=== PATIENT | male | born 1965 | race Caucasian/White ===

== ENCOUNTER 2020-05-21 22:11 | Emergency (ER) | payer BC, OTHER ==
[~2020-05-21] VITALS: Ht 185.4 cm; Wt 145.2 kg
[2020-05-21] MEDS ORDERED: JARD1TAB PO (22:23)
[2020-05-21] MEDS ORDERED: AUGM875T28 PO (22:23)
[2020-05-21] MEDS ORDERED: CHLO125TA PO (22:23)
[2020-05-21] MEDS ORDERED: VYVA70CA3 PO (22:23)
[2020-05-21] MEDS ORDERED: METF500T13 PO (22:23)
[2020-05-21] MEDS ORDERED: ACET-841 PO (22:23)
[2020-05-21] MEDS ORDERED: TRUL10IN SC (22:23)
[2020-05-21 23:06] LABS: HEMATOCRIT 49.3 % (42.0-52.0); HEMOGLOBIN 17.4 g/dl (13.5-17.5); MEAN CORPUSCULAR HEMOGLOBIN 31.1 pg (27.0-33.0); MEAN CORPUSCULAR HGB CONC 35.3 g/dl (32.0-36.5); MEAN CORPUSCULAR VOLUME 88.2 fl (80.0-96.0); PLATELET COUNT, AUTOMATED 270 10^3/uL (150-450); RED BLOOD COUNT 5.59 10^6/uL (4.30-6.10); WHITE BLOOD COUNT 9.6 10^3/uL (4.0-10.0)
[2020-05-21 23:24] LABS: ERYTHROCYTE SEDIMENTATION RATE 9 mm/hr (0-20)
[2020-05-21 23:43] LABS: BLOOD UREA NITROGEN 17 MG/DL (7-18); C REACTIVE PROTEIN QUANTITATIV 0.53 MG/DL (0.00-0.30); CALCIUM LEVEL 8.6 MG/DL (8.5-10.1); CARBON DIOXIDE LEVEL 29 MEQ/L (21-32); CHLORIDE LEVEL 101 MEQ/L (98-107); CREATININE FOR GFR 0.88 MG/DL (0.70-1.30); GLOMERULAR FILTRATION RATE > 60.0 (>56); GLUCOSE, FASTING 194 MG/DL (70-100); POTASSIUM SERUM 3.2 MEQ/L (3.5-5.1); SODIUM LEVEL 136 MEQ/L (136-145)
[2020-05-21] MEDS ORDERED: VANCOMYCIN HCL 2,000 MG in IV FLUID PLACE HOLDER 1 EA IV ONE (23:45)
[2020-05-21] MEDS ORDERED: VANCOMYCIN HCL 1,000 MG, VIAL MATE ADAPTER 1 EACH in NS 250 ML IV ONE (23:50)
--- NOTE | 2020-05-22 00:29 | REPVR ---
PROCEDURE INFORMATION: Exam: XR Left Hand Exam date and time: 05/21/2020 11:54 PM Age: 55 years old Clinical indication: Other: Prior cut. 17 days. ; Additional info: Swelling/cut thumb 17 days ago TECHNIQUE: Imaging protocol: XR Left hand. Views: 3 or more views. COMPARISON: No relevant prior studies available. FINDINGS: Bones/joints: No acute fracture. Joint space narrowing and marginal osteophytes at 1st carpometacarpal joint. Mild periarticular calcification at the 1st carpometacarpal joint. Small cyst the scaphoid bone. There is 4 mm negative ulnar variance. Soft tissues: Small foreign body in the base of the thumb in the 1st web measuring 3 mm in length. IMPRESSION: 1. No acute fracture. 2. Osteoarthritic changes of the 1st carpometacarpal joint. 3. Negative ulnar variance. 4. Small foreign body in the base of the thumb in the 1st web measuring 3 mm in length. Electronically signed by: Johanna Benoit On 05/22/2020 00:29:44 AM
[2020-05-22] MEDS ORDERED: KETOROLAC 30 MG/ML 1ML VIAL IV ONE (00:30)
[2020-05-22] MEDS ORDERED: VANCOMYCIN HCL 1,000 MG, VIAL MATE ADAPTER 1 EACH in NS 250 ML IV ONE (00:50)
[2020-05-22] MEDS ORDERED: DOXY100C37 PO (01:46)
[2020-05-22] MEDS ORDERED: KETO10TAB PO (01:46)
[2020-05-22 02:10] VITALS: BP 163/76
--- NOTE | 2020-05-23 08:08 | ED PDOC ---
Post-Departure Follow-Up ceretified letter ent to pt re formal read of left hand film. + foriegn body. pl ease refer to [facility] for revaluation and possible removal Maggy Jensen MD May 23, 2020 08:08
== END 2020-05-22 02:12 | disposition home or self-care (01) ==
LOC: M ED 22:11
DX: L03.114 Cellulitis of left upper limb (principal); S61.022A Laceration with foreign body of left thumb without damage to nail, initial encounter; W26.0XXA Contact with knife, initial encounter; Y92.9 Unspecified place or not applicable; Y93.9 Activity, unspecified; Y99.9 Unspecified external cause status; M18.9 Osteoarthritis of first carpometacarpal joint, unspecified; E11.9 Type 2 diabetes mellitus without complications; I10 Essential (primary) hypertension; Z88.2 Allergy status to sulfonamides; Z79.899 Other long term (current) drug therapy
CPT/HCPCS: 73130; 80048; 85027; 85652; 86140; 96365; 96375; 99284; J1885; J3370

== ENCOUNTER → 2020-07-30 | Outpatient (CLI) | payer BC ==
[~2020-07-30] MED LIST: ACET-841 PO; AUGM875T28 PO; CHLO125TA PO; DOXY100C37 PO; GLUC1TAB58 PO; JARD1TAB PO; KETO10TAB PO; LOVA1CAP17 PO; METF500T13 PO; TRUL10IN SC; VITA-243 PO; VITA50005 PO; VITMTA PO; VYVA70CA3 PO
== END ==
LOC: M LABSMTC 13:01
PROVIDERS: ATTEND Anesthesiology
DX: Z01.812 Encounter for preprocedural laboratory examination (principal)

== ENCOUNTER 2020-08-04 06:53 | Day surgery (SDC) | payer BC ==
[~2020-08-04] VITALS: Ht 185.4 cm; Wt 140.6 kg
[~2020-08-04 06:53] MED LIST changes: +NS 1,000 ML IV ONE
[2020-08-04] MEDS ORDERED: propofoL 500 MG/50 ML VIAL As Ordered ONE ×2 (07:32→07:38)
[2020-08-04] MEDS ORDERED: LIDOCAINE 2% 100MG/5ML SDV (FOR ANES.) As Ordered ONE (07:32)
--- NOTE | 2020-08-04 08:09 | ROOR ---
Patient Name: David Vieyra Procedure Date: 08/04/2020 7:34 AM Date of : 1965 Age: 55 Room: [facility] Gender: Male Note Status: Finalized Procedure: Total Colonoscopy to Cecum + Cold Snare Polypectomy + Hemoclips Indications: Screening for colorectal malignant neoplasm Providers: Woody Woods MD Referring MD: Pierre Hilliard MD Requesting Provider: Medicines: Monitored Anesthesia Care Complications: No immediate complications. Procedure: Pre-Anesthesia Assessment: - The heart rate, respiratory rate, oxygen saturations, blood pressure, adequacy of pulmonary ventilation, and response to care were monitored throughout the procedure. The Colonoscope was introduced through the anus and advanced to the cecum, identified by appendiceal orifice and ileocecal valve. The colonoscopy was performed without difficulty. The patient tolerated the procedure well. The quality of the bowel preparation was fair. Findings: The perianal and digital rectal examinations were normal. Non-bleeding internal hemorrhoids were found during retroflexion. The hemorrhoids were small and Grade I (internal hemorrhoids that do not prolapse). A small polyp was found in the ascending colon. The polyp was sessile. The polyp was removed with a jumbo cold forceps. Resection and retrieval were complete. To prevent bleeding after the polypectomy, one hemostatic clip was successfully placed. There was no bleeding at the end of the procedure. A small polyp was found in the transverse colon. The polyp was sessile. The polyp was removed with a cold snare. Resection and retrieval were complete. To prevent bleeding after the polypectomy, one hemostatic clip was successfully placed (MR conditional). There was no bleeding at the end of the procedure. The exam was otherwise without abnormality on direct and retroflexion views. Impression: - Preparation of the colon was fair. - Non-bleeding internal hemorrhoids. - One small polyp in the ascending colon, removed with a jumbo cold forceps. Resected and retrieved. Clip was placed. - One small polyp in the transverse colon, removed with a cold snare. Resected and retrieved. Clip (MR conditional) was placed. - The examination was otherwise normal on direct and retroflexion views. - The exam was otherwise normal to the cecum. Recommendation: - Patient has a contact number available for emergencies. The signs and symptoms of potential delayed complications were discussed with the patient. Return to normal activities tomorrow. Written discharge instructions were provided to the patient. - High fiber diet. - Discharge patient to home. - Continue present medications. - Await pathology results. - Telephone GI clinic for pathology results in 1 week. - Repeat colonoscopy in 3 years for surveillance based on pathology results. - Return to referring physician. - The findings and recommendations were discussed with the patient's family. Procedure Code(s): --- Professional --- 94284, Colonoscopy, flexible; with removal of tumor(s), polyp(s), or other lesion(s) by snare technique 81621, 59, Colonoscopy, flexible; with biopsy, single or multiple Diagnosis Code(s): --- Professional --- Z12.11, Encounter for screening for malignant neoplasm of colon K64.0, First degree hemorrhoids K63.5, Polyp of colon CPT copyright 2019 [employer]. All rights reserved. The codes documented in this report are preliminary and upon supervisor telephone information review may be revised to meet current compliance requirements. Woody Woods MD Woody Woods MD 08/04/2020 8:09:08 AM Electronically signed by Woody Woods MD Number of Addenda: 0 Note Initiated On: 08/04/2020 7:34 AM Estimated Blood Loss: Estimated blood loss: none.
[2020-08-04 08:24] VITALS: BP 141/86
== END 2020-08-04 08:25 | disposition home or self-care (01) ==
LOC: M OPP 06:53
PROVIDERS: ATTEND Internal Medicine Gastroenterology
DX: Z12.11 Encounter for screening for malignant neoplasm of colon (principal); K63.5 Polyp of colon; K64.0 First degree hemorrhoids; E11.9 Type 2 diabetes mellitus without complications; I10 Essential (primary) hypertension; G47.30 Sleep apnea, unspecified; Z79.84 Long term (current) use of oral hypoglycemic drugs; Z79.899 Other long term (current) drug therapy; Z88.2 Allergy status to sulfonamides

== ENCOUNTER 2022-07-22 06:28 | Day surgery (SDC) | payer BC ==
[~2022-07-22] VITALS: Ht 185.4 cm; Wt 138.0 kg
[~2022-07-22 06:28] MED LIST changes: +DOXY-443 PO; -DOXY100C37 PO; +ERGO500029 PO; -NS 1,000 ML IV ONE; -VITA50005 PO
[2022-07-22 10:35] LABS: BASO # 0.1 10^3/uL (0.0-0.2); BASO % 0.5 % (0.0-1.0); EOS % 0.2 % (0.0-3.0); HEMATOCRIT 51.4 % (42.0-52.0); LYMPH # 0.7 10^3/uL (1.5-5.0); LYMPH % 4.1 % (24.0-44.0); MEAN CORPUSCULAR VOLUME 88.5 fl (80.0-96.0); MONO % 10.5 % (2.0-8.0); NEUTROPHILS # 15.1 10^3/uL (1.5-8.5); NEUTROPHILS % 84.3 % (36.0-66.0); PLATELET COUNT, AUTOMATED 237 10^3/uL (150-450); RED BLOOD COUNT 5.81 10^6/uL (4.30-6.10)
[2022-07-22 10:55] LABS: LIPASE 33 U/L (12-53)
[2022-07-22 10:58] LABS: ALBUMIN 4.2 G/DL (3.2-5.2); ALKALINE PHOSPHATASE 92 U/L (46-116); ALT/SGPT 71 U/L (7.0-40); AST/SGOT 41 U/L (<34); BILIRUBIN,DIRECT 0.5 MG/DL (<0.4); BILIRUBIN,TOTAL 1.6 MG/DL (0.3-1.2); BLOOD UREA NITROGEN 11 MG/DL (9-23); CALCIUM LEVEL 9.4 MG/DL (8.5-10.1); CARBON DIOXIDE LEVEL 32 MMOL/L (20-31); CHLORIDE LEVEL 95 MMOL/L (98-107); GLOMERULAR FILTRATION RATE > 60.0 (>56); GLUCOSE, FASTING 149 MG/DL (60-100); POTASSIUM SERUM 3.9 MMOL/L (3.5-5.1); SODIUM LEVEL 134 MMOL/L (136-145); TOTAL PROTEIN 7.3 G/DL (5.7-8.2)
[2022-07-22 11:14] LABS: MONO # 1.9 10^3/uL (0.0-0.8)
[2022-07-22] MEDS ORDERED: ISOVUE-370 76% 100ML VIAL As Ordered ONE (11:28)
[2022-07-22] MEDS ORDERED: PIPERACILLIN/TAZOBACTAM SOD 3.375 GM in D5W MINI-BAG PLUS 50 ML IV ONE (12:25)
[2022-07-22] MEDS ORDERED: MORPHINE 2 MG/ML 1ML VIAL IV ONE (12:30)
[2022-07-22 13:55] LABS: RSV AMPLIFICATION NEGATIVE (NEGATIVE)
[2022-07-22] MEDS ORDERED: CENT1TAB12 PO (14:11)
[2022-07-22] MEDS ORDERED: LISI10TA22 PO (14:11)
[2022-07-22] MEDS ORDERED: HOME MED LIST COMPLETE! XX SCH (14:15)
[2022-07-22] MEDS ORDERED: MORPHINE 4 MG/ML 1ML VIAL IV ONE (17:00)
[2022-07-22] MEDS ORDERED: BUPIVACAINE/EPIN 0.25% 30ML VIAL As Ordered ONE (18:11)
[2022-07-22] MEDS ORDERED: fentaNYL 100 MCG/2 ML INJECTION IV PRN (19:30)
[2022-07-22] MEDS ORDERED: LR 1,000 ML IV SCH (19:30)
[2022-07-22] MEDS ORDERED: oxyCODONE 5MG TAB PO PRN (19:30)
[2022-07-22] MEDS ORDERED: ONDANSETRON 4MG 2ML VIAL IV PRN (19:30)
[2022-07-22] MEDS ORDERED: ZOSYN 3.375GM VIAL As Ordered ONE (19:41)
[2022-07-22] MEDS ORDERED: KETOROLAC 60MG 2ML VIAL As Ordered ONE (20:14)
[2022-07-22] MEDS ORDERED: fentaNYL 250 MCG/5 ML INJECTION As Ordered ONE (20:14)
[2022-07-22] MEDS ORDERED: MIDAZOLAM INJ 2MG/2ML VIAL As Ordered ONE (20:14)
[2022-07-22] MEDS ORDERED: SUGAMMADEX SODIUM 500 MG/5 ML VIAL (BRIDION) As Ordered ONE (20:14)
[2022-07-22] MEDS ORDERED: LIDOCAINE 2% 100MG/5ML SDV (FOR ANES.) As Ordered ONE (20:14)
[2022-07-22] MEDS ORDERED: ONDANSETRON 4MG 2ML VIAL As Ordered ONE (20:14)
[2022-07-22] MEDS ORDERED: ACETAMINOPHEN 1000MG 100ML IV BAG As Ordered ONE (20:14)
[2022-07-22] MEDS ORDERED: propofoL 200 MG/20 ML VIAL As Ordered ONE ×2 (20:14→20:47)
[2022-07-22] MEDS ORDERED: ROCURONIUM BROMIDE 50MG/5ML VIAL As Ordered ONE (20:14)
[2022-07-22] MEDS ORDERED: MORPHINE 2 MG/ML 1ML VIAL IV PRN (20:55)
[2022-07-22] MEDS ORDERED: IPRATROPIUM 0.5MG/ALBUTEROL 2.5MG INH SOL UD 3ML (DUONEB) NEB PRN (20:55)
[2022-07-22] MEDS ORDERED: DEXTROSE 50% 50ML SYRINGE IV PRN (20:55)
[2022-07-22] MEDS ORDERED: MORPHINE 4 MG/ML 1ML VIAL IV PRN ×2 (20:55)
[2022-07-22] MEDS ORDERED: GLUCOSE 4GM CHEW TABLET PO PRN (20:55)
[2022-07-22] MEDS ORDERED: GLUCAGON INJ 1MG VIAL SC PRN (20:55)
[2022-07-22] MEDS ORDERED: INSULIN LISPRO (NovoLOG) PER UNIT SC SCH (21:00)
[2022-07-22 21:45] VITALS: BP 139/83
[2022-07-22] MEDS: NS 1,000 ML IV SCH (22:13)
[2022-07-22 22:15] VITALS: BP 141/74
[2022-07-22 22:45] VITALS: BP 123/73
[2022-07-22 23:45] VITALS: BP 122/73
[2022-07-23 00:45] VITALS: BP 121/72
[2022-07-23] MEDS: PIPERACILLIN/TAZOBACTAM SOD 3.375 GM in D5W MINI-BAG PLUS 50 ML IV SCH ×3 (01:17→13:15)
[2022-07-23 01:45] VITALS: BP 120/72
[2022-07-23] MEDS: IPRATROPIUM 0.5MG/ALBUTEROL 2.5MG INH SOL UD 3ML (DUONEB) NEB SCH ×3 (02:04→13:48)
[2022-07-23 02:45] VITALS: BP 120/74
[2022-07-23] MEDS: KETOROLAC 30 MG/ML 1ML VIAL IV SCH ×2 (03:04→07:55)
[2022-07-23] MEDS: NS 1,000 ML IV SCH ×2 (04:08→11:39)
[2022-07-23 06:45] VITALS: BP 130/76
[2022-07-23] MEDS: INSULIN LISPRO (NovoLOG) PER UNIT SC SCH ×2 (07:53→11:40)
[2022-07-23 07:54] VITALS: BP 130/73
[2022-07-23] MEDS ORDERED: PANTOPRAZOLE 40MG VIAL IV SCH (09:00)
[2022-07-23] MEDS ORDERED: CHLORTHALIDONE 25 MG TAB PO SCH (09:00)
[2022-07-23 10:45] VITALS: BP 126/70
[2022-07-23] MEDS ORDERED: AMOX500T2 PO (13:09)
== END 2022-07-23 14:54 | disposition home or self-care (01) ==
LOC: M ED 06:28 → M SDC 06:29 → M MSPAV 22:10 → M SDC 07-23 14:54
PROVIDERS: ATTEND Surgery
DX: K35.890 Other acute appendicitis without perforation or gangrene (principal); I10 Essential (primary) hypertension; E11.9 Type 2 diabetes mellitus without complications; G47.33 Obstructive sleep apnea (adult) (pediatric); Z79.84 Long term (current) use of oral hypoglycemic drugs; Z79.899 Other long term (current) drug therapy
CPT/HCPCS: 44970; 74177; 80048; 80076; 81001; 83605; 83690; 85025; 87631; 88304; 94640; 96365; 96366; 96375; 96376; 99284; C9113; J0131; J1100; J1815; J1885; J2250; J2405; J2543; J3010; Q9967; S0020

== ENCOUNTER → 2025-02-28 | Outpatient (CLI) | payer BC ==
[~2025-02-28] MED LIST changes: +AMOX500T2 PO; +CENT1TAB12 PO; +DOXY-441 PO; -DOXY-443 PO; +LISI10TA22 PO
== END ==
LOC: M RAD 15:47
PROVIDERS: ATTEND Physician Assistant Surgical
DX: M79.661 Pain in right lower leg (principal)

== ENCOUNTER → 2025-03-04 | Outpatient (CLI) | payer BC | LOC: M PLAIMG 07:49 | PROVIDERS: ATTEND Physician Assistant Surgical | DX: S82.114A Nondisplaced fracture of right tibial spine, initial encounter for closed fracture (principal); W18.30XA Fall on same level, unspecified, initial encounter; Y92.009 Unspecified place in unspecified non-institutional (private) residence as the place of occurrence of the external cause ==